=== PATIENT | female | born 1990 | race Caucasian/White ===

== ENCOUNTER 2020-08-11 14:56 | Emergency (ER) | payer OTHER ==
--- NOTE | 2020-08-11 15:14 | PDOC ---
Rapid Medical Evaluation Time Seen by Provider: 08/11/20 15:12 Medical Evaluation: Allergies Allergy/AdvReac Type Severity Reaction Status Date / Time No Known Allergies Allergy Verified 07/14/18 22:48 08/11/20 15:14 Pt presents for head and neck pain after a piece of ceiling fell on her head from a water leak. No loc Exam: NAD. No gross neuro deficits, moving all extremities Orders: defer to provider Pt to proceed to the ER for further evaluation Discharge Disposition - Diagnosis Injury - Referrals - Patient Instructions - Post Discharge Activity
[2020-08-11 15:18] VITALS: BP 94/70; PULSE 75; TEMP 96.2; BMI 32.1
--- NOTE | 2020-08-11 15:51 | PDOC ---
History of Present Illness - General Chief Complaint: Injury Stated Complaint: INJURY Time Seen by Provider: 08/11/20 15:12 History Source: Patient - History of Present Illness Occurred: reports: this morning Pain Location: reports: neck Method of Injury: Yes: direct blow Past History - Medical History Allergies/Adverse Reactions: Allergies Allergy/AdvReac Type Severity Reaction Status Date / Time No Known Allergies Allergy Verified 08/11/20 15:18 Home Medications: Ambulatory Orders Pnv#24/Iron Aa Vanessa/FA/Dha [ Dha+Complete ] 1 each PO DAILY 09/06/15 Omeprazole 20 mg PO DAILY #20 tablet. 07/15/18 Anemia: Yes Asthma: No Cancer: No Cardiac Disorders: No COPD: No Diabetes: No HTN: No Seizures: No Thyroid Disease: No - Reproductive History Is Patient Now?: No - Immunization History Td Vaccination: Yes TDAP Vaccination: Yes Immunization Up to Date: Yes - Psycho-Social/Smoking History Smoking Status: No Smoking History: Never smoked Years of Tobacco Use: 0 Have you smoked in the past 12 months: No Number of Cigarettes Smoked Daily: 0 Cigars Per Day: 0 Review of Systems - Review of Systems ABD/GI: No: Nausea, Vomiting Musculoskeletal: Yes: Joint Pain, Neck Pain. No: Joint Swelling Neurological: No: Headache, Dizziness *Physical Exam - Vital Signs Last Vital Signs Temp Pulse Resp BP Pulse Ox 96.2 F L 75 18 94/70 99 08/11/20 15:15 08/11/20 15:15 08/11/20 15:15 08/11/20 15:15 08/11/20 15:15 - Physical Exam General Appearance: Yes: Appropriately Dressed. No: Apparent Distress HEENT: positive: Normal Voice Neck: positive: Supple. negative: Tender, Decreased range of motion Respiratory/Chest: negative: Respiratory Distress Extremity: positive: Normal Inspection, Normal Range of Motion. negative: Tender, Swelling Integumentary: positive: Dry, Warm Neurologic: positive: Fully Oriented, Alert, Normal Mood/Affect Medical Decision Making - Medical Decision Making 08/11/20 15:48 29-year-old female, no significant history, here with neck pain s/p injury approximately 7 hours ago. Patient states at 8:30 this morning family was in he r bedroom when part of the ceiling fell on top of them. No LOC, headache, dizziness, nausea, vomiting or blurry vision. Patient well-appearing and stable with no evidence of serious injury on exam. DC with reassurance Discharge - Discharge Information Problems reviewed: Yes Clinical Impression/Diagnosis: Injury Condition: Good Disposition: HOME - Follow up/Referral Referrals: Chelsea Lowe [Primary Care Provider] - - Patient Discharge Instructions Additional Instructions: There was no evidence of serious injury on exam - Post Discharge Activity
== END 2020-08-11 15:53 | disposition home or self-care (01) ==
LOC: JERFT 14:56
DX: M54.2 Cervicalgia (principal)
CPT/HCPCS: 99283-25

== ENCOUNTER 2021-01-26 13:44 | Emergency (ER) | payer OTHER ==
[2021-01-26 13:55] VITALS: BP 104/71; PULSE 89; TEMP 98; BMI 30.5
[2021-01-26] MEDS ORDERED: IBUPROFEN 600 MG TABLET (FP) PO ONE ×2 (14:49→14:53)
[2021-01-26 15:15] LABS: BASO % 0.8 % (0-2.0); EOS % 1.2 % (0-4.5); HEMATOCRIT 37.6 % (32.4-45.2); HEMOGLOBIN 12.8 GM/dL (10.7-15.3); LYMPH % 20.3 % (8-40); MEAN CELL VOLUME 91.2 fl (80-96); MEAN PLT VOLUME 9.2 fl (7.5-11.1); MONO % 7.5 % (3.8-10.2); NEUT % 70.2 % (42.8-82.8); PLATELET COUNT 235 K/MM3 (134-434); RBC 4.12 M/mm3 (3.60-5.2); RDW 13.5 % (11.6-15.6); WHITE BLOOD COUNT 8.4 K/mm3 (4.0-10.0)
[2021-01-26 15:25] LABS: EPI CELLS >36 /uL (0-25.1); HYALINE CASTS 2 /uL (0-3.1); PH,URINE 6.5 (5.0-8.0); URINE APPEARANCE CLEAR; URINE BACTERIA 872 /uL (0-1359); URINE BILIRUBIN NEGATIVE (NEGATIVE); URINE COLOR YELLOW; URINE GLUCOSE (UA) NEGATIVE (NEGATIVE); URINE KETONE TRACE (NEGATIVE); URINE LEUK ESTERASE TRACE (NEGATIVE); URINE NITRITE NEGATIVE (NEGATIVE); URINE PROTEIN NEGATIVE (NEGATIVE); URINE RBC 41 /uL (0-23.9); URINE WBC 22 /uL (0-25.8)
[2021-01-26 15:26] LABS: CHLORIDE 108 mmol/L (98-107); SODIUM 138 mmol/L (136-145)
[2021-01-26 15:29] LABS: ALBUMIN 4.4 g/dl (3.4-5.0); ANION GAP 3 MMOL/L (8-16); BLOOD UREA NITROGEN 16.8 mg/dL (7-18); CALCIUM 9.3 mg/dL (8.5-10.1); CO2 28 mmol/L (21-32); GLUCOSE,RANDOM 96 mg/dL (74-106)
[2021-01-26 15:31] LABS: CREATININE 0.8 mg/dL (0.55-1.3)
[2021-01-26 15:33] LABS: BILIRUBIN,TOTAL 0.4 mg/dL (0.2-1); SGOT/AST 18 U/L (15-37); SGPT/ALT 20 U/L (13-61); TOT PROT 7.6 g/dl (6.4-8.2)
[2021-01-26 15:34] LABS: ALK PHOS 79 U/L (45-117)
[2021-01-26 15:39] LABS: HCG,QUALITATIVE URINE Negative
[2021-01-29] MEDS ORDERED: MAG HYDROX/AL HYDROX/SIMETH 30 ML UNIT-DOSE CUP ONE (23:59)
[2021-01-29] MEDS ORDERED: FAMOTIDINE 20 MG/50 ML IVPB 20 MG/50 ML MG IVPB ONE (23:59)
[2021-01-29] MEDS ORDERED: LIDOCAINE VISCOUS 2% ORAL/TOP 20 ML UNIT-DOSE CUP ONE (23:59)
[2021-01-30] MEDS ORDERED: FAMOTIDINE 20 MG TABLET ONE (00:08)
[2021-01-30] MEDS ORDERED: METOCLOPRAMIDE HCL 10 MG TABLET (FP) PO ONE (00:08)
[2021-01-30] MEDS ORDERED: KETOROLAC TROMETHAMINE 30 MG/1 ML VIAL ONE (20:29)
[2021-01-30] MEDS ORDERED: ONDANSETRON 4 MG/2 ML VIAL ONE (21:08)
[2021-01-30] MEDS ORDERED: LORazepam 2 MG/ML SDV VIAL ONE ×2 (21:09→23:07)
[2021-01-31] MEDS ORDERED: CLINDAMYCIN 900 MG PREMIX IVPB 900 MG/50 ML BAG IVPB ONE (01:26)
[2021-01-31] MEDS ORDERED: ONDANSETRON 4 MG/2 ML VIAL ONE (03:40)
[2021-01-31] MEDS ORDERED: ACETAMINOPHEN INJECTION 100 ML IVPB ONE (15:43)
== END 2021-01-26 17:10 | disposition left against medical advice (07) ==
LOC: JER 13:44
DX: R07.89 Other chest pain (principal)
CPT/HCPCS: 36415; 71046-TC-FY; 80053; 81003; 82550; 84484; 84703; 85025; 93005; 93010; 99284-25

== ENCOUNTER 2021-01-29 23:17 | Emergency (ER) | payer OTHER ==
[2021-01-29 23:27] VITALS: BP 131/77; PULSE 103; TEMP 97.4; BMI 30.9
[2021-01-29] MEDS ORDERED: MAG HYDROX/AL HYDROX/SIMETH 30 ML UNIT-DOSE CUP PO ONE (23:46)
[2021-01-29] MEDS ORDERED: FAMOTIDINE 20 MG/50 ML IVPB 20 MG/50 ML MG IVPB ONE (23:46)
[2021-01-29] MEDS ORDERED: LIDOCAINE VISCOUS 2% ORAL/TOP 20 ML UNIT-DOSE CUP MM ONE (23:46)
[2021-01-29] MEDS ORDERED: METOCLOPRAMIDE HCL 10 MG TABLET (FP) PO ONE (23:57)
[2021-01-30] MEDS ORDERED: FAMOTIDINE 10 MG TABLET PO ONE (00:07)
[2021-01-30 01:13] LABS: EPI CELLS 29 /uL (0-25.1); HYALINE CASTS 2 /uL (0-3.1); PH,URINE 6.5 (5.0-8.0); URINE APPEARANCE CLEAR; URINE BACTERIA 573 /uL (0-1359); URINE BILIRUBIN NEGATIVE (NEGATIVE); URINE COLOR YELLOW; URINE GLUCOSE (UA) NEGATIVE (NEGATIVE); URINE KETONE 1+ (NEGATIVE); URINE LEUK ESTERASE TRACE (NEGATIVE); URINE NITRITE NEGATIVE (NEGATIVE); URINE PROTEIN NEGATIVE (NEGATIVE); URINE RBC 18 /uL (0-23.9); URINE WBC 28 /uL (0-25.8)
== END 2021-01-30 02:12 | disposition home or self-care (01) ==
LOC: JER 23:17
DX: R10.30 Lower abdominal pain, unspecified (principal); R11.10 Vomiting, unspecified
CPT/HCPCS: 81003; 84703; 87086; 99283-25; C9803; U0003; U0005

== ENCOUNTER 2021-01-30 14:53 | Observation (INO) | payer OTHER ==
[2021-01-30] MEDS ORDERED: ACETAMINOPHEN 1000 MG/100 ML VIAL (NON FORMULARY) IVPB ONE (16:01)
[2021-01-30] MEDS ORDERED: FAMOTIDINE 20 MG/50 ML IVPB 20 MG/50 ML MG IVPB ONE ×2 (16:01→16:37)
[2021-01-30] MEDS ORDERED: ONDANSETRON 4 MG/2 ML VIAL IVPUSH ONE ×2 (16:01→20:55)
[2021-01-30] MEDS ORDERED: SODIUM CHLORIDE 1,000 ML IV STA (16:01)
[2021-01-30] MEDS ORDERED: ONDANSETRON 4 MG/2 ML VIAL ONE (16:36)
[2021-01-30] MEDS ORDERED: ACETAMINOPHEN INJECTION 100 ML IVPB ONE (16:36)
[2021-01-30 16:45] LABS: BASO % 0.5 % (0-2.0); EOS % 0.1 % (0-4.5); HEMOGLOBIN 12.6 GM/dL (10.7-15.3); LYMPH % 12.9 % (8-40); MCH 30.7 pg (25.7-33.7); MCHC 34.2 g/dl (32.0-36.0); MEAN CELL VOLUME 89.7 fl (80-96); MONO % 8.8 % (3.8-10.2); NEUT % 77.7 % (42.8-82.8); PLATELET COUNT 227 K/MM3 (134-434); RBC 4.12 M/mm3 (3.60-5.2); RDW 13.2 % (11.6-15.6); WHITE BLOOD COUNT 12.5 K/mm3 (4.0-10.0)
[2021-01-30 16:59] LABS: CALCIUM 9.5 mg/dL (8.5-10.1)
[2021-01-30 17:00] LABS: ALBUMIN 4.1 g/dl (3.4-5.0); BLOOD UREA NITROGEN 15.2 mg/dL (7-18)
[2021-01-30 17:03] LABS: CREATININE 0.7 mg/dL (0.55-1.3)
[2021-01-30 17:05] LABS: BILIRUBIN,TOTAL 0.7 mg/dL (0.2-1); TOT PROT 7.6 g/dl (6.4-8.2)
[2021-01-30] MEDS ORDERED: KETOROLAC TROMETHAMINE 30 MG/1 ML VIAL ONE (17:26)
[2021-01-30] MEDS ORDERED: METOCLOPRAMIDE HCL INJECTION 10 MG/2 ML VIAL ONE (17:26)
[2021-01-30] MEDS ORDERED: KETOROLAC TROMETHAMINE 30 MG/1 ML VIAL IVPUSH ONE (20:27)
[2021-01-30] MEDS ORDERED: SODIUM CHLORIDE 0.9% 500 ML INFUS.BAG IV ONE (20:55)
[2021-01-30] MEDS ORDERED: LORazepam 2 MG/ML SDV VIAL IVPUSH ONE ×2 (21:00→23:00)
[2021-01-31] MEDS ORDERED: CLINDAMYCIN 900 MG PREMIX IVPB 900 MG/50 ML BAG IVPB ONE (00:59)
[2021-01-31] MEDS ORDERED: ONDANSETRON 4 MG/2 ML VIAL IVPUSH PRN (03:26)
[2021-01-31] MEDS ORDERED: ACETAMINOPHEN 325 MG TABLET (FP) PO PRN (03:27)
[2021-01-31] MEDS: SODIUM CHLORIDE 1,000 ML IV SCH ×2 (04:28→21:59)
[2021-01-31 08:19] LABS: POTASSIUM 3.7 mmol/L (3.5-5.1)
[2021-01-31 08:32] LABS: CALCIUM 8.4 mg/dL (8.5-10.1)
[2021-01-31 08:33] LABS: BLOOD UREA NITROGEN 11.9 mg/dL (7-18)
[2021-01-31 08:36] LABS: CREATININE 0.6 mg/dL (0.55-1.3)
[2021-01-31 08:39] LABS: BASO % 0.5 % (0-2.0); EOS % 0.6 % (0-4.5); HEMATOCRIT 32.4 % (32.4-45.2); HEMOGLOBIN 11.2 GM/dL (10.7-15.3); LYMPH % 13.2 % (8-40); MCH 31.3 pg (25.7-33.7); MCHC 34.5 g/dl (32.0-36.0); MEAN CELL VOLUME 90.7 fl (80-96); MEAN PLT VOLUME 9.3 fl (7.5-11.1); MONO % 11.5 % (3.8-10.2); NEUT % 74.2 % (42.8-82.8); PLATELET COUNT 181 K/MM3 (134-434); RBC 3.57 M/mm3 (3.60-5.2); RDW 13.4 % (11.6-15.6); WHITE BLOOD COUNT 7.3 K/mm3 (4.0-10.0)
[2021-01-31] MEDS ORDERED: PANTOPRAZOLE SODIUM 40 MG VIAL ONE (09:18)
[2021-01-31] MEDS ORDERED: ENOXAPARIN NA (PORCINE) 40 MG/0.4 ML DISP.SYRIN SQ ONE (09:18)
[2021-01-31] MEDS ORDERED: CEFTRIAXONE 1 GM/50 ML BAG ONE (09:18)
[2021-01-31 09:26] LABS: HIV INTERPRETATION NEGATIVE (NEGATIVE)
[2021-01-31] MEDS: CEFTRIAXONE 1 GM in DEXTROSE 5%-WATER - 50 ML IVPB SCH (09:44)
[2021-01-31] MEDS: ENOXAPARIN NA (PORCINE) 40 MG/0.4 ML DISP.SYRIN SQ SCH (09:44)
[2021-01-31] MEDS ORDERED: PANTOPRAZOLE SODIUM 40 MG VIAL IVPUSH SCH (10:00)
[2021-01-31] MEDS: MIRTAZAPINE 15 MG TABLET (FP) PO SCH (10:29)
[2021-01-31 10:45] LABS: PH,URINE 6.5 (5.0-8.0); URINE APPEARANCE CLOUDY; URINE BILIRUBIN NEGATIVE (NEGATIVE); URINE COLOR YELLOW; URINE GLUCOSE (UA) NEGATIVE (NEGATIVE); URINE KETONE 3+ (NEGATIVE); URINE LEUK ESTERASE NEGATIVE (NEGATIVE); URINE NITRITE NEGATIVE (NEGATIVE); URINE PROTEIN NEGATIVE (NEGATIVE)
[2021-01-31] MEDS: ACETAMINOPHEN 1000 MG/100 ML VIAL (NON FORMULARY) IVPB PRN ×2 (15:53→22:23)
[2021-01-31 21:04] VITALS: BMI 31.1
[2021-01-31] MEDS ORDERED: MELATONIN 5 MG TABLETS PO ONE (22:19)
[2021-02-01] MEDS: SODIUM CHLORIDE 1,000 ML IV SCH ×2 (05:22→23:18)
[2021-02-01 08:37] LABS: BASO % 0.4 % (0-2.0); HEMOGLOBIN 11.4 GM/dL (10.7-15.3); RBC 3.63 M/mm3 (3.60-5.2); RDW 13.4 % (11.6-15.6); WHITE BLOOD COUNT 7.2 K/mm3 (4.0-10.0)
[2021-02-01 08:41] LABS: HEMATOCRIT 32.8 % (32.4-45.2); LYMPH % 11.5 % (8-40); MCH 31.5 pg (25.7-33.7); MCHC 34.8 g/dl (32.0-36.0); MEAN CELL VOLUME 90.5 fl (80-96); MEAN PLT VOLUME 8.9 fl (7.5-11.1); MONO % 10.8 % (3.8-10.2); NEUT % 76.3 % (42.8-82.8); PLATELET COUNT 198 K/MM3 (134-434)
[2021-02-01 08:47] LABS: POTASSIUM 3.6 mmol/L (3.5-5.1)
[2021-02-01 08:55] LABS: CALCIUM 8.6 mg/dL (8.5-10.1)
[2021-02-01 08:59] LABS: CREATININE 0.6 mg/dL (0.55-1.3)
[2021-02-01] MEDS ORDERED: DEXTROSE 5%-WATER - 50 ML IVPB ONE (09:36)
[2021-02-01] MEDS ORDERED: PT OWN MED DRAWER 7, Y5N ONE (09:36)
[2021-02-01] MEDS ORDERED: cefTRIAXone SODIUM 1 GM VIAL ONE (09:36)
[2021-02-01] MEDS: ENOXAPARIN NA (PORCINE) 40 MG/0.4 ML DISP.SYRIN SQ SCH (09:42)
[2021-02-01] MEDS: DOXYCYCLINE HYCLATE 100 MG CAPSULE PO SCH ×2 (09:42→18:33)
[2021-02-01] MEDS: PRENATAL VITAMINS W/ FOLIC ACID TABLET (FP) PO SCH (09:42)
[2021-02-01] MEDS: CEFTRIAXONE 1 GM in DEXTROSE 5%-WATER - 50 ML IVPB SCH (09:43)
[2021-02-01] MEDS ORDERED: PANTOPRAZOLE 20 MG TABLET PO SCH (10:00)
[2021-02-01] MEDS ORDERED: ACETAMINOPHEN 325 MG TABLET (FP) PO PRN (12:15)
[2021-02-01] MEDS ORDERED: SIMETHICONE 80 MG TAB.CHEW (FP) PO PRN (15:58)
[2021-02-01] MEDS: MIRTAZAPINE 15 MG TABLET (FP) PO SCH (21:05)
[2021-02-01] MEDS ORDERED: MELATONIN 5 MG TABLETS PO ONE (23:45)
[2021-02-02] MEDS ORDERED: LORazepam 0.5 MG TABLET PO ONE (06:43)
[2021-02-02 07:28] LABS: BASO % 0.6 % (0-2.0); EOS % 1.7 % (0-4.5); HEMATOCRIT 31.5 % (32.4-45.2); HEMOGLOBIN 10.8 GM/dL (10.7-15.3); LYMPH % 19.3 % (8-40); MCH 30.9 pg (25.7-33.7); MCHC 34.2 g/dl (32.0-36.0); MEAN CELL VOLUME 90.6 fl (80-96); MEAN PLT VOLUME 9.6 fl (7.5-11.1); MONO % 10.2 % (3.8-10.2); NEUT % 68.2 % (42.8-82.8); PLATELET COUNT 209 K/MM3 (134-434); RBC 3.48 M/mm3 (3.60-5.2); RDW 13.3 % (11.6-15.6); WHITE BLOOD COUNT 5.9 K/mm3 (4.0-10.0)
[2021-02-02 07:33] VITALS: BP 124/68; PULSE 68; TEMP 97.9
[2021-02-02 08:02] LABS: POTASSIUM 3.8 mmol/L (3.5-5.1)
[2021-02-02 08:58] LABS: CALCIUM 8.7 mg/dL (8.5-10.1)
[2021-02-02 08:59] LABS: BLOOD UREA NITROGEN 5.4 mg/dL (7-18)
[2021-02-02 09:01] LABS: CREATININE 0.6 mg/dL (0.55-1.3)
[2021-02-02 09:03] LABS: BILIRUBIN,TOTAL 0.4 mg/dL (0.2-1)
[2021-02-02 09:05] LABS: ALBUMIN 3.1 g/dl (3.4-5.0)
[2021-02-02] MEDS ORDERED: PT OWN MED DRAWER 7, Y5N ONE (10:24)
[2021-02-02] MEDS: DOXYCYCLINE HYCLATE 100 MG CAPSULE PO SCH (10:32)
[2021-02-02] MEDS: ENOXAPARIN NA (PORCINE) 40 MG/0.4 ML DISP.SYRIN SQ SCH ×2 (10:33→10:37)
[2021-02-02] MEDS: PRENATAL VITAMINS W/ FOLIC ACID TABLET (FP) PO SCH (10:33)
[2021-02-02] MEDS: SODIUM CHLORIDE 1,000 ML IV SCH (10:37)
== END 2021-02-02 14:55 | disposition home or self-care (01) ==
LOC: JER 14:53 → INTOOBSV 01-31 00:56 → JERBED 01-31 00:56 → J8W 01-31 20:27
PROVIDERS: ADMIT Internal Medicine; ATTEND Internal Medicine
PROC: 3E0337Z Introduction of Electrolytic and Water Balance Substance into Peripheral Vein, Percutaneous Approach (ICD-10-PCS; principal; 2021-01-31)
PROC: 3E033NZ Introduction of Analgesics, Hypnotics, Sedatives into Peripheral Vein, Percutaneous Approach (ICD-10-PCS; 2021-01-31)
PROC: 3E03329 Introduction of Other Anti-infective into Peripheral Vein, Percutaneous Approach (ICD-10-PCS; 2021-01-31)
PROC: 3E033GC Introduction of Other Therapeutic Substance into Peripheral Vein, Percutaneous Approach (ICD-10-PCS; 2021-01-31)
PROC: 3E0333Z Introduction of Anti-inflammatory into Peripheral Vein, Percutaneous Approach (ICD-10-PCS; 2021-01-31)
DX: N83.209 Unspecified ovarian cyst, unspecified side (principal); F41.9 Anxiety disorder, unspecified; R10.30 Lower abdominal pain, unspecified; N83.8 Other noninflammatory disorders of ovary, fallopian tube and broad ligament; R18.8 Other ascites; D72.829 Elevated white blood cell count, unspecified; F12.10 Cannabis abuse, uncomplicated; F17.210 Nicotine dependence, cigarettes, uncomplicated; Z87.898 Personal history of other specified conditions
CPT/HCPCS: 36415; 74176-TC; 74177-TC; 76830-TC; 80048; 80053; 81003; 84703; 85025; 86140; 87389; 87491; 87591; 93005; 93010; 96361; 96365; 96367; 96375; 96376; 99285-25; C9803; G0378; J0131; U0003; U0005

== ENCOUNTER 2021-02-13 19:13 | Emergency (ER) | payer OTHER ==
[2021-02-13 19:17] VITALS: BP 114/52; PULSE 72; TEMP 98.1; BMI 30.9
[2021-02-13] MEDS ORDERED: KETOROLAC TROMETHAMINE 30 MG/1 ML VIAL IM ONE (19:28)
[2021-02-13] MEDS ORDERED: LIDOCAINE VISCOUS 2% ORAL/TOP 20 ML UNIT-DOSE CUP MM ONE (19:28)
[2021-02-13] MEDS ORDERED: KETOROLAC TROMETHAMINE 30 MG/1 ML VIAL ONE (19:41)
[2021-02-13] MEDS ORDERED: LIDOCAINE VISCOUS 2% ORAL/TOP 20 ML UNIT-DOSE CUP ONE (19:42)
== END 2021-02-13 19:55 | disposition home or self-care (01) ==
LOC: JERFT 19:13
PROC: 3E0233Z Introduction of Anti-inflammatory into Muscle, Percutaneous Approach (ICD-10-PCS; principal; 2021-02-13)
DX: K08.89 Other specified disorders of teeth and supporting structures (principal)
CPT/HCPCS: 99284-25

== ENCOUNTER 2021-02-13 22:52 | Emergency (ER) | payer OTHER ==
[2021-02-13 22:55] VITALS: BP 112/78; PULSE 80; TEMP 98.1; BMI 30.9
[2021-02-13] MEDS ORDERED: metroNIDAZOLE 250 MG TABLET PO ONE (23:23)
[2021-02-13] MEDS ORDERED: BUPIVACAINE HCL 0.25% 125 MG/50 ML VIAL INF ONE (23:24)
[2021-02-13] MEDS ORDERED: BUPIVACAINE HCL 50 ML ONE (23:26)
[2021-02-13] MEDS ORDERED: metroNIDAZOLE 250 MG TABLET ONE (23:39)
[2021-02-13] MEDS ORDERED: LIDOCAINE VISCOUS 2% ORAL/TOP 100 ML BOTTLE MM ONE (23:50)
[2021-02-13] MEDS ORDERED: LIDOCAINE VISCOUS 2% ORAL/TOP 20 ML UNIT-DOSE CUP ONE (23:54)
== END 2021-02-14 00:53 ==
LOC: JER 22:52
PROC: 3E0233Z Introduction of Anti-inflammatory into Muscle, Percutaneous Approach (ICD-10-PCS; principal; 2021-02-13)
DX: K08.89 Other specified disorders of teeth and supporting structures (principal)
CPT/HCPCS: 99284-25

== ENCOUNTER 2021-05-05 13:58 | Emergency (ER) | payer OTHER ==
[2021-05-05 14:23] VITALS: BMI 30.9
[2021-05-05] MEDS ORDERED: ONDANSETRON 4 MG/2 ML VIAL IVPUSH ONE (15:06)
[2021-05-05] MEDS ORDERED: ACETAMINOPHEN 1000 MG/100 ML VIAL (NON FORMULARY) IVPB ONE (15:06)
[2021-05-05] MEDS ORDERED: SODIUM CHLORIDE 1,000 ML IV STA (15:06)
[2021-05-05] MEDS ORDERED: ACETAMINOPHEN INJECTION 100 ML IVPB ONE (15:11)
[2021-05-05] MEDS ORDERED: ONDANSETRON 4 MG/2 ML VIAL ONE (15:11)
[2021-05-05 15:39] LABS: BASO % 0.5 % (0-2.0); EOS % 0.7 % (0-4.5); HEMATOCRIT 42.5 % (32.4-45.2); HEMOGLOBIN 14.1 GM/dL (10.7-15.3); LYMPH % 12.8 % (8-40); MCH 29.7 pg (25.7-33.7); MCHC 33.1 g/dl (32.0-36.0); MEAN CELL VOLUME 89.9 fl (80-96); MEAN PLT VOLUME 8.7 fl (7.5-11.1); MONO % 5.2 % (3.8-10.2); NEUT % 80.8 % (42.8-82.8); PLATELET COUNT 245 10^3/uL (134-434); RBC 4.73 M/mm3 (3.60-5.2); RDW 13.8 % (11.6-15.6); WHITE BLOOD COUNT 13.1 K/mm3 (4.0-10.0)
[2021-05-05 16:05] LABS: CALCIUM 9.5 mg/dL (8.5-10.1)
[2021-05-05 16:06] LABS: ALBUMIN 4.5 g/dl (3.4-5.0); BLOOD UREA NITROGEN 10.5 mg/dL (7-18)
[2021-05-05 16:09] LABS: CREATININE 0.7 mg/dL (0.55-1.3)
[2021-05-05 16:10] LABS: BILIRUBIN,TOTAL 0.4 mg/dL (0.2-1); TOT PROT 7.9 g/dl (6.4-8.2)
[2021-05-05] MEDS ORDERED: FAMOTIDINE 20 MG/50 ML IVPB 20 MG/50 ML MG IVPB ONE ×2 (16:18→16:58)
[2021-05-05 18:00] VITALS: BP 103/74; PULSE 87
[2021-05-05 19:06] LABS: HCG,QUALITATIVE URINE Negative
[2021-05-05 19:08] LABS: URINE APPEARANCE Clear; URINE BILIRUBIN 1+ (NEGATIVE); URINE COLOR Yellow; URINE GLUCOSE (UA) Negative (NEGATIVE); URINE KETONE 2+ (NEGATIVE); URINE LEUK ESTERASE Negative (NEGATIVE); URINE NITRITE Negative (NEGATIVE); URINE PROTEIN 1+ (NEGATIVE); URINE UROBILINOGEN 0.2 mg/dL (0.2-1.0)
[2021-05-05 19:19] LABS: EPI CELLS 310.2 /uL (0-25.1); HYALINE CASTS 30.23 /uL (0-3.1); URINE BACTERIA 1517.2 /uL (0-1359); URINE RBC 58.4 /uL (0-23.9); URINE WBC 261.5 /uL (0-25.8)
== END 2021-05-05 19:13 | disposition home or self-care (01) ==
LOC: JER 13:58
PROC: 3E033NZ Introduction of Analgesics, Hypnotics, Sedatives into Peripheral Vein, Percutaneous Approach (ICD-10-PCS; principal; 2021-05-05)
PROC: 3E033GC Introduction of Other Therapeutic Substance into Peripheral Vein, Percutaneous Approach (ICD-10-PCS; 2021-05-05)
PROC: 3E0337Z Introduction of Electrolytic and Water Balance Substance into Peripheral Vein, Percutaneous Approach (ICD-10-PCS; 2021-05-05)
DX: N30.00 Acute cystitis without hematuria (principal)
CPT/HCPCS: 36415; 80053; 81003; 83690; 84703; 85025; 87086; 99285-25; J0131

== ENCOUNTER 2021-07-05 12:08 | Emergency (ER) | payer OTHER ==
[2021-07-05 12:16] VITALS: BP 116/87; PULSE 110; TEMP 99.1; BMI 68.5
== END 2021-07-05 13:26 | disposition home or self-care (01) ==
LOC: JER 12:08
DX: U07.1 COVID-19 (principal)
CPT/HCPCS: 87804; 99283-25; C9803; U0003; U0005

== ENCOUNTER 2021-09-21 22:26 | Emergency (ER) | payer OTHER ==
[2021-09-21 22:34] VITALS: BP 107/73; PULSE 113; TEMP 98
[2021-09-21] MEDS ORDERED: ACETAMINOPHEN 500 MG TABLET (FP) PO ONE (23:15)
[2021-09-21] MEDS ORDERED: ACETAMINOPHEN 325 MG TABLET (FP) ONE (23:18)
[2021-09-21] MEDS ORDERED: DOXYCYCLINE HYCLATE 100 MG CAPSULE PO ONE ×2 (23:22→23:41)
[2021-09-22] MEDS ORDERED: DOXYCYCLINE HYCLATE 100 MG CAPSULE PO SCH (10:00)
== END 2021-09-21 23:50 | disposition home or self-care (01) ==
LOC: JER 22:26
DX: S80.861A Insect bite (nonvenomous), right lower leg, initial encounter (principal); W57.XXXA Bitten or stung by nonvenomous insect and other nonvenomous arthropods, initial encounter
CPT/HCPCS: 99283-25

== ENCOUNTER 2021-10-06 02:51 | Emergency (ER) | payer OTHER ==
[2021-10-06 03:24] VITALS: BP 101/62; PULSE 69; TEMP 97.6; BMI 30.7
== END 2021-10-06 04:29 | disposition home or self-care (01) ==
LOC: JER 02:51
DX: S91.115A Laceration without foreign body of left lesser toe(s) without damage to nail, initial encounter (principal)
CPT/HCPCS: 99283-25

== ENCOUNTER 2021-12-02 16:31 | Emergency (ER) | payer OTHER ==
[2021-12-02 16:39] VITALS: BP 122/86; PULSE 77; TEMP 98; BMI 32.1
[2021-12-02] MEDS ORDERED: ONDANSETRON 4 MG/2 ML VIAL IVPUSH ONE (17:37)
[2021-12-02] MEDS ORDERED: KETOROLAC TROMETHAMINE 15 MG/ML VIAL IVPUSH ONE (17:38)
[2021-12-02] MEDS ORDERED: KETOROLAC TROMETHAMINE 15 MG/ML VIAL ONE (18:39)
[2021-12-02 19:00] LABS: BASO % 0.8 % (0-2.0); EOS % 0.1 % (0-4.5); HEMATOCRIT 35.2 % (32.4-45.2); HEMOGLOBIN 11.9 GM/dL (10.7-15.3); LYMPH % 8.7 % (8-40); MCH 29.6 pg (25.7-33.7); MCHC 33.9 g/dl (32.0-36.0); MEAN CELL VOLUME 87.5 fl (80-96); MEAN PLT VOLUME 8.8 fl (7.5-11.1); MONO % 4.9 % (3.8-10.2); NEUT % 85.5 % (42.8-82.8); PLATELET COUNT 234 10^3/uL (134-434); RBC 4.02 M/mm3 (3.60-5.2); RDW 14.3 % (11.6-15.6); WHITE BLOOD COUNT 11.9 K/mm3 (4.0-10.0)
[2021-12-02 19:11] LABS: INR 1.1 (0.83-1.09); PROTHROMBIN TIME (PATIENT) 12.7 SEC (9.7-13.0)
[2021-12-02 19:41] LABS: CALCIUM 9.5 mg/dL (8.5-10.1)
[2021-12-02 19:42] LABS: ALBUMIN 4.4 g/dl (3.4-5.0)
[2021-12-02 19:45] LABS: CREATININE 0.8 mg/dL (0.55-1.3)
[2021-12-02 19:47] LABS: BILIRUBIN,TOTAL 0.5 mg/dL (0.2-1); TOT PROT 7.3 g/dl (6.4-8.2)
[2021-12-02] MEDS ORDERED: ACETAMINOPHEN 500 MG TABLET (FP) ONE (20:02)
[2021-12-02] MEDS ORDERED: oxyCODONE HCL 5 MG TABLET PO ONE (20:27)
[2021-12-02] MEDS ORDERED: oxyCODONE HCL 5 MG TABLET ONE (20:33)
== END 2021-12-02 21:05 | disposition home or self-care (01) ==
LOC: JER 16:31
PROC: 3E0333Z Introduction of Anti-inflammatory into Peripheral Vein, Percutaneous Approach (ICD-10-PCS; principal; 2021-12-02)
DX: O03.9 Complete or unspecified spontaneous abortion without complication (principal)
CPT/HCPCS: 36415; 80053; 84702; 85025; 85610; 86850; 86900; 86901; 99284-25

== ENCOUNTER 2022-03-10 09:26 | Emergency (ER) | payer OTHER ==
[2022-03-10 09:38] VITALS: BP 106/68; PULSE 70; TEMP 97.9; BMI 31.2
[2022-03-10 10:42] LABS: EPI CELLS >36 /uL (0-25.1); HYALINE CASTS 2 /uL (0-3.1); PH,URINE 6.5 (5.0-8.0); URINE APPEARANCE CLOUDY; URINE BACTERIA >9,000 /uL (0-1359); URINE BILIRUBIN NEGATIVE (NEGATIVE); URINE COLOR YELLOW; URINE GLUCOSE (UA) NEGATIVE (NEGATIVE); URINE KETONE 1+ (NEGATIVE); URINE LEUK ESTERASE 3+ (NEGATIVE); URINE NITRITE POSITIVE (NEGATIVE); URINE PROTEIN 2+ (NEGATIVE); URINE RBC 555 /uL (0-23.9); URINE WBC 1978 /uL (0-25.8)
[2022-03-10 11:04] LABS: HCG,QUALITATIVE URINE Negative
== END 2022-03-10 11:26 | disposition home or self-care (01) ==
LOC: JERFT 09:26
DX: N30.01 Acute cystitis with hematuria (principal)
CPT/HCPCS: 81003; 84703; 87086; 87186; 99283-25

== ENCOUNTER 2023-03-09 16:59 | Inpatient (IN) | payer OTHER ==
[2023-03-09] MEDS ORDERED: ACETAMINOPHEN 1000 MG/100 ML BAG IVPB ONE (18:01)
[2023-03-09] MEDS ORDERED: KETOROLAC TROMETHAMINE 15 MG/ML VIAL IVPUSH ONE (18:07)
[2023-03-09] MEDS ORDERED: ACETAMINOPHEN INJECTION 100 ML IVPB ONE (18:10)
[2023-03-09] MEDS ORDERED: KETOROLAC TROMETHAMINE 30 MG/1 ML VIAL ONE (18:10)
[2023-03-09 18:26] LABS: BASO % 0.5 % (0-2.0); EOS % 0.3 % (0-4.5); HEMATOCRIT 35.1 % (32.4-45.2); HEMOGLOBIN 11.7 GM/dL (10.7-15.3); LYMPH % 9.7 % (8-40); MCH 27.5 pg (25.7-33.7); MCHC 33.2 g/dl (32.0-36.0); MEAN CELL VOLUME 82.7 fl (80-96); MEAN PLT VOLUME 8.6 fl (7.5-11.1); MONO % 5.9 % (3.8-10.2); NEUT % 83.6 % (42.8-82.8); PLATELET COUNT 345 10^3/uL (134-434); RBC 4.24 M/mm3 (3.60-5.2); RDW 15.9 % (11.6-15.6); WHITE BLOOD COUNT 18.5 K/mm3 (4.0-10.0)
[2023-03-09 18:34] LABS: POTASSIUM 4.2 mmol/L (3.5-5.1)
[2023-03-09 18:37] LABS: ALBUMIN 4.7 g/dl (3.4-5.0); BLOOD UREA NITROGEN 14.7 mg/dL (7-18)
[2023-03-09 18:40] LABS: CREATININE 0.8 mg/dL (0.55-1.3)
[2023-03-09 18:41] LABS: BILIRUBIN,TOTAL 0.3 mg/dL (0.2-1)
[2023-03-09] MEDS ORDERED: SODIUM CHLORIDE 1,000 ML IV STA (19:15)
[2023-03-09] MEDS ORDERED: morphine CARPU-JECT 2 MG/1 ML DISP.SYRIN IVPUSH ONE (19:39)
[2023-03-10 01:26] VITALS: RESP 16
[2023-03-10 03:37] LABS: COCAINE, UR NEGATIVE (NEGATIVE); METHADONE, UR NEGATIVE (NEGATIVE); PHENCYCLIDINE,URINE NEGATIVE (NEGATIVE); URINE BENZODIAZEPINES NEGATIVE (NEGATIVE)
[2023-03-10 03:38] LABS: OPIATES, URI NEGATIVE (NEGATIVE); URINE AMPHETAMINES NEGATIVE (NEGATIVE); URINE BARBITURATES NEGATIVE (NEGATIVE)
[2023-03-10 03:45] VITALS: BMI 28.8
[2023-03-10] MEDS ORDERED: ACETAMINOPHEN 1000 MG/100 ML BAG IVPB PRN (04:04)
[2023-03-10 04:19] LABS: EPI CELLS 22 /uL (0-25.1); HYALINE CASTS 2 /uL (0-3.1); URINE APPEARANCE Clear; URINE BACTERIA 28 /uL (0-1359); URINE BILIRUBIN Negative (NEGATIVE); URINE COLOR Yellow; URINE GLUCOSE (UA) Negative (NEGATIVE); URINE KETONE 15 mg/dl (NEGATIVE); URINE LEUK ESTERASE Negative (NEGATIVE); URINE NITRITE Negative (NEGATIVE); URINE PROTEIN Trace (NEGATIVE); URINE RBC 781 /uL (0-23.9); URINE UROBILINOGEN 0.2 mg/dL (0.2-1.0); URINE WBC 34 /uL (0-25.8)
[2023-03-10 09:15] LABS: BASO % 0.5 % (0-2.0); EOS % 0.7 % (0-4.5); HEMATOCRIT 33.4 % (32.4-45.2); HEMOGLOBIN 11.1 GM/dL (10.7-15.3); LYMPH % 23.7 % (8-40); MCH 27.6 pg (25.7-33.7); MCHC 33.2 g/dl (32.0-36.0); MEAN CELL VOLUME 83.1 fl (80-96); MEAN PLT VOLUME 8.1 fl (7.5-11.1); MONO % 7.6 % (3.8-10.2); NEUT % 67.5 % (42.8-82.8); PLATELET COUNT 259 10^3/uL (134-434); RBC 4.02 M/mm3 (3.60-5.2); RDW 15.6 % (11.6-15.6); WHITE BLOOD COUNT 7.3 K/mm3 (4.0-10.0)
[2023-03-10 09:26] LABS: POTASSIUM 4.4 mmol/L (3.5-5.1)
[2023-03-10] MEDS: ENOXAPARIN NA (PORCINE) 40 MG/0.4 ML DISP.SYRIN SQ SCH ×2 (09:27→09:28)
[2023-03-10 09:29] LABS: BLOOD UREA NITROGEN 14.5 mg/dL (7-18); CALCIUM 9.1 mg/dL (8.5-10.1)
[2023-03-10 09:32] LABS: CREATININE 0.7 mg/dL (0.55-1.3); PHOSPHOROUS 3.2 mg/dL (2.5-4.9)
[2023-03-10 09:34] LABS: BILIRUBIN,TOTAL 0.6 mg/dL (0.2-1); TOT PROT 6.8 g/dl (6.4-8.2)
[2023-03-10 09:47] LABS: ALBUMIN 3.7 g/dl (3.4-5.0)
[2023-03-10 10:17] VITALS: BP 116/68; PULSE 64; TEMP 98.2
== END 2023-03-10 13:35 | disposition home or self-care (01) | DRG 463 ==
LOC: JERFT 16:59 → JER 16:59 → JERBED 23:38 → J5S 03-10 02:54
PROVIDERS: ADMIT Internal Medicine; ATTEND Student in an Organized Health Care Education/Training Program
DX: N12 Tubulo-interstitial nephritis, not specified as acute or chronic (principal); E66.9 Obesity, unspecified; Z68.28 Body mass index [BMI] 28.0-28.9, adult; N83.209 Unspecified ovarian cyst, unspecified side; D72.829 Elevated white blood cell count, unspecified; F12.90 Cannabis use, unspecified, uncomplicated; Z72.0 Tobacco use; Z86.16 Personal history of COVID-19
CPT/HCPCS: 36415; 71046-TC-FY; 74177-TC; 76830-TC; 80053; 80307; 81003; 83690; 83735; 84100; 84703; 85025; 87086; 93005; 93010; 99285-25; C9803-CS; Q9967; U0003; U0005

== ENCOUNTER 2023-12-20 03:54 | Day surgery (SDC) | payer OTHER ==
[2023-12-17 13:20] VITALS: BMI 27.8
[2023-12-20] MEDS ORDERED: IBUPROFEN 400 MG TABLET (FP) PO PRN (07:37)
[2023-12-20] MEDS ORDERED: oxyCODONE HCL 5 MG TABLET PO PRN ×2 (07:37→10:58)
[2023-12-20] MEDS ORDERED: ACETAMINOPHEN 325 MG TABLET (FP) PO PRN (07:37)
[2023-12-20] MEDS ORDERED: SEVOFLURANE 250 ML BTL ONE (08:32)
[2023-12-20] MEDS ORDERED: ONDANSETRON 4 MG/2 ML VIAL ONE (08:34)
[2023-12-20] MEDS ORDERED: SODIUM CHLORIDE 0.9% P/F 10 ML VIAL IJ ONE (08:34)
[2023-12-20] MEDS ORDERED: DEXAMETHASONE SOD PHOSPHATE 4 MG/1 ML VIAL ONE (08:34)
[2023-12-20] MEDS ORDERED: KETOROLAC TROMETHAMINE 30 MG/1 ML VIAL ONE (08:34)
[2023-12-20] MEDS ORDERED: LIDOCAINE HCL/PF 2% SDV 5ML VIAL ONE (08:34)
[2023-12-20] MEDS ORDERED: ePHEDrine SULFATE 50 MG/1 ML AMPULE ONE (08:34)
[2023-12-20] MEDS ORDERED: MIDAZOLAM HCL 2 MG/2 ML SINGLE DOSE VIAL ONE (08:39)
[2023-12-20] MEDS ORDERED: PROPOFOL 20 ML ONE ×2 (08:40→09:47)
[2023-12-20] MEDS ORDERED: GLYCOPYRROLATE 0.2 MG/1 ML VIAL ONE (09:51)
[2023-12-20] MEDS ORDERED: KETAMINE HCL 200 MG/20 ML VIAL ONE (09:52)
[2023-12-20] MEDS ORDERED: PROPOFOL 40 ML ONE (10:05)
[2023-12-20] MEDS ORDERED: HYDROmorphone HCl 2 MG/ML VIAL ONE (10:27)
[2023-12-20] MEDS ORDERED: ONDANSETRON 4 MG/2 ML VIAL IVPUSH PRN (10:58)
[2023-12-20] MEDS: LACTATED RINGERS SOLUTION 1,000 ML IV SCH (11:00)
[2023-12-20 12:18] VITALS: RESP 18
[2023-12-20 16:08] VITALS: BP 107/66; PULSE 70; TEMP 97.7
== END 2023-12-20 14:01 | disposition home or self-care (01) ==
LOC: JASU-SURG 03:54
PROVIDERS: ATTEND Obstetrics & Gynecology
PROC: 0UDB8ZX Extraction of Endometrium, Via Natural or Artificial Opening Endoscopic, Diagnostic (ICD-10-PCS; principal; 2023-12-20 09:30)
DX: N94.6 Dysmenorrhea, unspecified (principal); N84.0 Polyp of corpus uteri; N84.1 Polyp of cervix uteri
CPT/HCPCS: 81025; 86850; 86900; 86901; 88305-TC; 94760; J0131

== ENCOUNTER 2024-05-26 19:38 | Emergency (ER) | payer OTHER ==
[2024-05-26] MEDS: IBUPROFEN 600 MG TABLET (FP) PO ONE (19:57)
[2024-05-26] MEDS ORDERED: IBUPROFEN 600 MG TABLET (FP) PO ONE (19:58)
[2024-05-26 19:59] VITALS: BP 106/68; PULSE 82; RESP 16; TEMP 98.6; BMI 28.6
== END 2024-05-26 19:59 | disposition home or self-care (01) ==
LOC: FER 19:38
DX: S39.012A Strain of muscle, fascia and tendon of lower back, initial encounter (principal); S16.1XXA Strain of muscle, fascia and tendon at neck level, initial encounter; V49.59XA Passenger injured in collision with other motor vehicles in traffic accident, initial encounter; Y92.410 Unspecified street and highway as the place of occurrence of the external cause
CPT/HCPCS: 99283-25